=== PATIENT | male | born 2000 | race Caucasian/White ===

== ENCOUNTER 2020-10-08 10:10 | Emergency (ER) | payer OTHER, BC, SELFPAY ==
--- NOTE | ~2020-10-08 | XR_ITS ---
EXAMINATION: XR finger 3rd LT min 2V EXAM DATE: 10/08/2020 11:15 INDICATION: Initial encounter following injury, with pain of the left 3rd finger. TECHNIQUE: Left 3rd finger frontal, lateral and oblique projections obtained and reviewed. There i s no prior study for comparison. FINDINGS: There are no acute left 3rd finger fractures or dislocations identified. There is no subcu taneous gas. Probable identification of laceration along the volar aspect of the distal interphalang eal joint. There are no radiopaque foreign bodies. IMPRESSION: 1. Left 3rd finger exam without acute osseous findings. 2. Laceration. Reviewed, dictated and finalized at location [facility]
[2020-10-08 10:25] VITALS: BP 145/73; PULSE 82; RESP 18; TEMP 36.5; O2SAT 99
--- NOTE | 2020-10-08 10:57 | ED.WOUNDLAC ---
HPI - Wound/Laceration General Chief Complaint: Wound/Laceration Stated Complaint: lac to finger Time Seen by Provider: 10/08/20 10:27 Source: patient Mode of arrival: ambulatory Limitations: no limitations History of Present Illness HPI narrative: This is a 20 year old male that presents to the ER for laceration sustained just prior to arrival. Reports he was removing a bolt from some equipment. Reports the bolt spun and he sustained a laceration to the left third finger. He is not up to date on tetanus. Denies decreased ROM or numbness. Related Data Allergies Allergy/AdvReac Type Severity Reaction Status Date / Time No Known Allergies Allergy Verified 10/08/20 10:33 Review of Systems Review of Systems: Narrative: CONSTITUTIONAL: Denies fever SKIN: Reports laceration MUSCULOSKELETAL: Denies joint pain, or myalgia. NEUROLOGIC: Denies numbness All systems reviewed & are unremarkable except as noted in HPI and below PMFSH Past Medical History Medical History (Updated 10/08/20 @ 12:16 by Kayley Harrington PA-C) No active medical problems Social History Social History (Updated 10/08/20 @ 10:59 by Kayley Harrington PA-C) Smoking status: Never smoker Gender identity (if verbalized by the patient): Male Exam Narrative: Exam Narrative: GENERAL: Well-appearing, well-nourished, and in no acute distress. HEAD: Normocephalic, atraumatic. EYES: EOMI. EXTREMITIES: Normal range of motion. No edema or obvious deformity. Left third finger distal phalanx with 1.5cm linear laceration into subcutaneous tissue on the palmar surface SKIN: Warm, dry, no rash. NEURO: No focal deficits. Alert and oriented x3. PSYCH: Normal mood and affect Course Vital Signs Vital signs: Vital Signs Temperature 97.7 F 10/08/20 10:25 Pulse Rate 82 10/08/20 10:25 Respiratory Rate 18 10/08/20 10:25 Blood Pressure 145/73 H 10/08/20 10:25 Pulse Oximetry 99 10/08/20 10:25 Temperature 97.7 F 10/08/20 10:25 Pulse Rate 82 10/08/20 10:25 Respiratory Rate 18 10/08/20 10:25 Blood Pressure 145/73 H 10/08/20 10:25 Pulse Oximetry 99 10/08/20 10:25 Procedures Laceration Laceration 1: Date: 10/08/20 Time: 12:13 Site: hand Side (If applicable): left Size (cm): 1.5 Description: linear Depth: simple, single layer Local Anesthetic: lidocaine 1% Amount of anesthesia used (mL): 5 Pre-repair: wound explored and irrigated ====== Skin Level ====== Skin layer closed with: nylon Size (cm): 4-0 Number of sutures: 2 Technique: simple, interrupted ====== Subcutaneous Layer ====== ====== Muscle Layer ====== ====== Tendon Layer ====== MDM - Wound/Laceration MDM Narrative Medical decision making narrative: Patient presents the emergency department for left third finger laceration sustained just prior to arrival. Wound was irrigated and closed with sutures. Patient was updated on tetanus. Left third finger x-ray is without acute osseous abnormalities or evidence of foreign body. Patient was instructed on wound care. He is to follow-up with primary care doctor. He was given warnings to return to the ER Imaging Data Radiologist's impression: ITS Impressions Finger X-Ray 10/08/20 11:24 IMPRESSION: 1. Left 3rd finger exam without acute osseous findings. 2. Laceration. Critical Care Time Critical Care Time Critical Care Time: No Discharge Plan Discharge Clinical Impression: Laceration Patient Disposition: Home, Self-Care Condition: Stable Instructions: Antibiotic Form, Care For Your Stitches (ED), Laceration (ED) Additional Instructions: Return to the emergency department if you experience fever, redness or swelling of your wound, abnormal drainage from your wound, or any other symptoms that are concerning to you. Take antibiotic as prescribed. Apply antibiotic ointment joseph
[2020-10-08] MEDS: TETANUS,DIPHTHERIA,AC PERTUSSIS ADULT (0.5 ML) BOOSTRIX IM (11:14)
== END 2020-10-08 12:23 | disposition home or self-care (01) ==
PROVIDERS: Emergency Provider Family Medicine
DX: S61.213A Laceration without foreign body of left middle finger without damage to nail, initial encounter (principal); Z23 Encounter for immunization; W26.8XXA Contact with other sharp object(s), not elsewhere classified, initial encounter
CPT/HCPCS: 12001; 73140; 90471; 90715; 99283